=== PATIENT | male | born 1965 | race African-American/Black ===

== ENCOUNTER 2017-12-03 14:26 | Emergency (ER) | payer OTHER ==
[~2017-12-03] VITALS: Ht 172.7 cm; Wt 74.5 kg
[2017-12-03 14:31] VITALS: TEMP 98.5
[2017-12-03] MEDS ORDERED: ZYRTEC 10MG10 MG PO (15:26)
[2017-12-03] MEDS ORDERED: FLONASE SENSIM9.9 ML NS (15:26)
[2017-12-03] MEDS ORDERED: ZESTRIL 20MG TA20 MG PO (15:26)
[2017-12-03] MEDS ORDERED: PATANOL OPHTHALM5 ML OD (15:26)
[2017-12-03] MEDS ORDERED: FLEXERIL 1010 MG/TAB PO (15:27)
[2017-12-03] MEDS ORDERED: MITIGARE0.6 MG (15:27)
[2017-12-03] MEDS ORDERED: ZYLOPRIM 300MG300 MG PO (15:27)
[2017-12-03] MEDS ORDERED: LEXAPRO 10MG10 MG PO (15:28)
[2017-12-03] MEDS ORDERED: ZETIA 10MG TAB10 MG PO (15:28)
[2017-12-03] MEDS ORDERED: CATAPRES 0.1MG0.1 MG PO (15:28)
[2017-12-03] MEDS ORDERED: ELIQUIS 5MG PO (15:28)
[2017-12-03] MEDS ORDERED: CRESTOR5 MG PO (15:28)
[2017-12-03] MEDS ORDERED: FIORICET 325 MG1 TA1 PO (16:53)
[2017-12-03 17:40] VITALS: BP 121/92; PULSE 100
== END 2017-12-03 17:30 | disposition home or self-care (01) ==
LOC: COL.ER 14:26
DX: G43.909 Migraine, unspecified, not intractable, without status migrainosus (principal); I10 Essential (primary) hypertension; E78.5 Hyperlipidemia, unspecified
CPT/HCPCS: J1200; J1885; J2765; J3010; J7040

== ENCOUNTER 2017-12-10 17:12 | Emergency (ER) | payer OTHER ==
[~2017-12-10] VITALS: Ht 172.7 cm; Wt 72.7 kg
[~2017-12-10 17:12] MED LIST: CATAPRES 0.1MG0.1 MG PO; CRESTOR5 MG PO; ELIQUIS 5MG PO; FIORICET 325 MG1 TA1 PO; FLEXERIL 1010 MG/TAB PO; FLONASE SENSIM9.9 ML NS; LEXAPRO 10MG10 MG PO; MITIGARE0.6 MG; PATANOL OPHTHALM5 ML OD; ZESTRIL 20MG TA20 MG PO; ZETIA 10MG TAB10 MG PO; ZYLOPRIM 300MG300 MG PO; ZYRTEC 10MG10 MG PO
[2017-12-10 17:21] VITALS: TEMP 99.4
[2017-12-10 17:59] LABS: BASO % 0.1 % (0.0-2.0); EOS % 0.1 % (0-4.0); GRAN # 7.7 (1.4-6.5); GRAN % 80.4 % (42.2-75.2); HEMATOCRIT 40.6 % (42.0-52.0); HEMOGLOBIN 13.3 g/dl (13.5-18.0); LYMPH # 0.8 (1.2-3.4); LYMPH % 8.5 % (20.0-51.0); MEAN CELL VOLUME 84 fl (80.0-100.0); MEAN CORPUSCULAR HEMOGLOBIN 28 pg (27.0-31.0); MEAN CORPUSCULAR HGB CONC 33 g/dl (33.0-37.0); MEAN PLATELET VOLUME 9.3 fl (7.4-10.4); MONO % 9.9 % (1.7-9.3); PLATELET COUNT 197 K/mm3 (130-400); RED BLOOD COUNT 4.83 M/mm3 (4.20-5.60); REDCELL DISTRIBUTION WIDTH-CV 15.6 % (11.5-14.5)
[2017-12-10 18:12] LABS: ALBUMIN 3.7 gm/dL (3.5-5.0); BILIRUBIN,TOTAL 1.2 mg/dL (0.0-1.0); C-REACTIVE PROTEIN 6.3 mg/dL (0.0-0.9); CALCIUM 9.2 mg/dL (8.4-10.2); CREATININE, serum 1.04 mg/dL (0.66-1.25); POTASSIUM 3.7 mmol/L (3.4-5.0)
[2017-12-10 18:26] LABS: ERYTHROCYTE SEDIMENTATION RATE 9 mm/hr (0-15)
[2017-12-10] MEDS ORDERED: MEDROL 4MG DOSPA4 MG PO ×2 (18:47→19:24)
[2017-12-10 19:19] VITALS: BP 128/96; PULSE 128
== END 2017-12-10 19:20 | disposition home or self-care (01) ==
LOC: COL.ER 17:12
PROVIDERS: Family Medicine
DX: M48.02 Spinal stenosis, cervical region (principal); R51 Headache; Z86.718 Personal history of other venous thrombosis and embolism
CPT/HCPCS: J1100; J1200; J1630; J2405; J7030